=== PATIENT | female | born 1955 | race African-American/Black ===

== ENCOUNTER → 2018-11-08 | Day surgery (SDC) | payer OTHER ==
[2018-11-06 15:19] LABS: BASOPHILS % 0.6 % (0.0-1.0); EOSINOPHILS # (AUTO) 0.3 (0.0-0.4); LYMPHOCYTES # (AUTO) 2.1 (1.0-3.2); LYMPHOCYTES % 30.7 % (18.0-39.1); MEAN CORPUSCULAR HEMOGLOBIN 27.6 pg (28-32); MEAN CORPUSCULAR HGB CONC 31.6 g/dL (31-35); MEAN CORPUSCULAR VOLUME 87.6 fL (81-99); MONOCYTES # (AUTO) 0.4 (0.2-0.8); MONOCYTES % 5.4 % (4.4-11.3); PLATELET COUNT 254 x10e3/uL (140-360); RED BLOOD COUNT 4.34 x10e6/uL (3.6-5.1); RED CELL DISTRIBUTION WIDTH 14.7 % (11.7-14.4)
[2018-11-06 15:31] LABS: ANION GAP 12.6 mmol/L (8-16); BLOOD UREA NITROGEN 9 mg/dL (7-26); BUN/CREATININE RATIO 10 (6-25); CALCIUM 9.8 mg/dL (8.4-10.2); CARBON DIOXIDE 26 mmol/L (22-29); CHLORIDE 107 mmol/L (98-107); CREATININE, SERUM 0.88 mg/dL (0.57-1.11); EST GLOMERULAR FILTRATION RATE > 60 ML/MIN (60-); GLUCOSE 110 mg/dL (74-118); POTASSIUM 3.6 mmol/L (3.5-5.1); SODIUM 142 mmol/L (136-145)
--- NOTE | 2018-11-06 16:11 | Diagnostic Imaging Report ---
EXAMINATION: CHEST 2 VIEWS INDICATION: Pre-admit. COMPARISON: None FINDINGS: TUBES and LINES: None. LUNGS: Lungs are well inflated. There is focal opacity within the left lower lung. No evidence of pulmonary edema. PLEURA: No pleural effusion or pneumothorax. HEART AND MEDIASTINUM: The cardiomediastinal silhouette is unremarkable. Status post CABG. BONES AND SOFT TISSUES: Status post median sternotomy. The second from superior most sternal wire is fractured. UPPER ABDOMEN: No free air under the diaphragm. IMPRESSION: Focal opacity within left lower lung, which may reflect atelectasis. However given focal appearance, follow-up chest radiograph is suggested in 6-8 weeks to assess for resolution and exclude underlying pulmonary abnormality. Second from superior most median sternotomy wire is fractured, of unclear chronicity. Signed by: Dr. Josie Maddox MD on 11/06/2018 4:07 PM
[~2018-11-08] MED LIST: ASPIRIN81 MG PO; CEFAZOLIN SOD 2 GM/D5W 50ML 50 ML IV ONE; DEXAMETHASONE SOD PHOS INJ 4 MG/ML VIAL ONE; EPINEPHRINE HCL 1:1000 1ML 1 MG/ML AMP ONE; FENTANYL CITRATE/PF 100MCG/2 ML INJ ONE; GLYCOPYRROLATE INJ 1MG/ 5 ML SYR ONE; LATANOPROST2.5 ML OP; LIDOCAINE HCL 2% LOCAL 20 ML VIAL ONE; LIDOCAINE HCL 2% LOCAL INJ 5 ML SDV VIAL INJ ONE; LIPITOR20 MG; LIPITOR40 MG PO; LOSARTAN-HCTZ1 EAC2 PO; METOCLOPRAMIDE HCL 10 MG/2ML VIAL ONE; MIDAZOLAM HCL 2 MG/2 ML VIAL ONE; NEOSTIGMINE 5 MG/5ML SYR ONE; ONDANSETRON HCL INJ 2MG/ML 2ML 2 MG/ML VIAL ONE; PHENYLEPHRINE HCL 1% 10 MG/ML VIAL ONE; PLAVIX75 MG PO; PROPOFOL IV EMULSION 10 MG/ML 20 ML VIAL ONE; ROCURONIUM BROMIDE 10 MG/ML 5ML VIAL ONE; ROPIVACAINE 0.5% 5 MG/ML 30 ML SDV ONE; SEVOFLURANE INHAL SOLN 250 ML PEN BTL ONE
--- OUTSIDE RECORDS SUMMARY | 2018-11-08 06:30 | XMS REPORT | Continuity of Care Document ---
Author Author [facility] Interface Address Unknown Phone Unavailable Problems Problem Status Onset Date Classification Date Reported Comments Source Hypercholesterolemia Active Problem 04/23/2014 Mohkhalif Miller Edema of both legs Active Problem 04/23/2014 Mohkhalif Miller Carotid Bruit Active Problem 04/23/2014 Mohkhalif Miller Equivalent angina Active Problem 04/23/2014 Mohkhalif Miller LV dysfunction Active Problem 04/23/2014 Mohkhalif Miller Abnormal electrocardiogram Active Problem 04/23/2014 Mohkhalif Miller Coronary atherosclerosis of bypass graft Active Problem 04/23/2014 Rick Miller Old myocardial infarction Active Problem 04/23/2014 Rick Miller Medications Medication Details Route Status Patient Instructions Ordering Provider Order Date Source Ranexa 1 tablet Orally Active 500 MG Orally Twice a day Paul 11/15/2013 Rick Miller Losartan Potassium 1 tablet Orally Active 50 MG Orally Once a day Paul Miller Clopidogrel Bisulfate 1 tablet Orally Active 75 mg Orally once a day Paul Miller Atorvastatin Calcium 1 tablet Orally Active 40 MG Orally Once a day Paul Miller Centrum Silver Ultra Womens Unknown Orally Active Orally Once a day Paul Miller Ibuprofen 2 tablet Orally Active 200 MG Orally Once a day Paul Miller Clopidogrel Bisulfate TAKE 1 TABLET BY MOUTH ONCE A DAY. NA Active 75 mg Paul Miller Aspirin 1 tablet Orally Active 81 MG Orally Once a day Paul Miller Xanax 1 tablet Orally Active 0.5 MG Orally once a day Paul Miller Nitrostat 1 tablet under the tongue and allow to dissolve as needed Sublingual Active 0.4 MG Sublingual PRN Paul Miller Atorvastatin Calcium TAKE 1 TABLET BY MOUTH ONCE A DAY NA Active 40 mg Paul Miller Lumigan 1 drop into affected eye in the evening Ophthalmic Active 0.01 % Ophthalmic Once a day Paul Miller Allergies, Adverse Reactions, Alerts Substance Category Reaction Severity Reaction type Status Date Reported Comments Source Codeine Adverse Reaction itchyness Adverse Reaction Active 02/27/2014 Rick Miller Morphine Adverse Reaction confusion Adverse Reaction Active 02/27/2014 Rick Miller Ranexa Adverse Reaction Refuses Adverse Reaction Active 02/27/2014 Rick Miller Lisinopril Adverse Reaction Cough Adverse Reaction Active 02/27/2014 Rick Miller Immunizations Immunization Date Given Site Status Last Updated Comments Source Results Order Name Results Value Reference Range Date Interpretation Comments Source Vital Signs Vital Sign Value Date Comments Source Weight 208 02/27/2014 Rick Miller Height 66 02/27/2014 Rick Miller Temperature Oral (F) 97.1 F 02/27/2014 Rick Miller Heart Rate 58 02/27/2014 Rick Miller Diastolic (mm Hg) 80 02/27/2014 Rick Miller Systolic (mm Hg) 140 02/27/2014 Rick Miller Encounters Location Location Details Encounter Type Encounter Number Reason For Visit Attending Provider ADM Date DC Date Status Source Rick Miller MD [place] 6 month f/u [id number] 02/27/2014 02/27/2014 Rick Miller MD PA 6 month f/u [id number] 02/27/2014 02/27/2014 Rick Miller MD PA Unknown [id number] 03/20/2014 03/20/2014 Rick Miller Procedures Procedure Code Date Perfomer Comments Source
--- OUTSIDE RECORDS SUMMARY | 2018-11-08 06:31 | XMS REPORT ---
Author Author Rick Miller Organization [employer] Address Unknown Phone Unavailable Care Team Providers Care Acls Specialist Name Role Phone Rick Miller CP Unavailable Allergies, Adverse Reactions, Alerts Substance Reaction Event Type Codeine itchyness Drug Allergy Morphine confusion Drug Allergy Ranexa Refuses Drug Allergy Lisinopril Cough Drug Allergy Encounters Encounter Location Date 6 month f/u Rick Miller MD [place] February 27, 2014 Problems Problem Type Condition ICD-9 Code Onset Dates Condition Status Assessment Coronary atherosclerosis of bypass graft 414.05 Active Problem Hypercholesterolemia 272.0 Active Assessment Equivalent angina 413.9 Active Problem Edema of both legs 782.3 Active Problem Carotid Bruit 785.9 Active Problem Equivalent angina 413.9 Active Problem LV dysfunction 429.9 Active Problem Abnormal electrocardiogram 794.31 Active Problem Coronary atherosclerosis of bypass graft 414.05 Active Problem Old myocardial infarction 412 Active Assessment Hypercholesterolemia 272.0 Active Assessment Abnormal electrocardiogram 794.31 Active Assessment Carotid Bruit 785.9 Active Assessment LV dysfunction 429.9 Active Assessment Edema of both legs 782.3 Active Assessment Old myocardial infarction 412 Active Medications Medication Code System Code Instructions Start Date End Date Status Dosage Centrum Silver Ultra Womens [facility] [address]-10 Orally Once a day Active Unknown Ibuprofen [facility] [address]-91 200 MG Orally Once a day Active 2 tablet Clopidogrel Bisulfate [facility] 85441814221 75 mg Active TAKE 1 TABLET BY MOUTH ONCE A DAY. Aspirin [facility] [address]-19 81 MG Orally Once a day Active 1 tablet Ranexa [facility] [address]-61 500 MG Orally Twice a day November 15, 2013 Active 1 tablet Xanax [facility] [address]-39 0.5 MG Orally once a day Active 1 tablet Nitrostat [facility] [address]-25 0.4 MG Sublingual PRN Active 1 tablet under the tongue and allow to dissolve as needed Losartan Potassium [facility] [address]-60 50 mg Orally Once a day Active 1 tablet Atorvastatin Calcium [facility] 35927148278 40 mg Active TAKE 1 TABLET BY MOUTH ONCE A DAY Lizette [facility] [address]-36 0.01 % Ophthalmic Once a day Active 1 drop into affected eye in the evening Social History Social History Element Qualifiers Date Reported Smoking . Status Former Smoker quit in 09/2013February 27, 2014 Alcohol Use No. February 27, 2014 Alcohol Screening: No. February 27, 2014 Marital Status: . February 27, 2014 Do you drink alcohol? No. February 27, 2014 Occupation: . [employer] February 27, 2014 Family history Qualifier Description Comment Date Reported Mother Stroke, HTN, CAD February 27, 2014 Father Metastatic prostate cancer, HTN February 27, 2014 Vital Signs Date/Time: February 27, 2014 Weight 208 lbs Height 66 in Temperature 97.1 F Cardiac Monitoring Heart Rate 58 /min Blood Pressure Diastolic 80 mm Hg Blood Pressure Systolic 140 mm Hg Results Electrocardiogram (ECG) Summary Purpose [employer] Submission
--- OUTSIDE RECORDS SUMMARY | 2018-11-08 06:31 | XMS REPORT ---
[facility] Address Unknown Phone Unavailable Care Team Providers Care Blue Leather Setter Name Role Phone KENNA ENCARNACION Unavailable Unavailable Problems This patient has no known problems. Allergies, Adverse Reactions, Alerts This patient has no known allergies or adverse reactions. Medications This patient has no known medications. Results Test Description Test Time Test Comments Text Results Atomic Results Result Comments CHEST 2 VIEWS 2018-11-06 16:02:00 [place] [address] Patient Name: ANABELL GRIFFITHS MR #: [id number] : 1955 Age/Sex: 63/F Req #: [id number] Adm Physician: Ordered by: KENNA ENCARNACION MD Report #: [id number] Location: OR Room/Bed: Procedure: [id number] DX/CHEST 2 VIEWS Exam Date: 11/06/18 Exam Time: 1517 REPORT STATUS: Signed EXAMINATION: CHEST 2 VIEWS INDICATION: Pre-admit. COMPARISON: None FINDINGS: TUBES and LINES: None. LUNGS: Lungs are well inflated. There is focal opacity within the left lower lung. No evidence of pulmonary edema. PLEURA: No pleural effusion or pneumothorax. HEART AND MEDIASTINUM: The cardiomediastinal silhouette is unremarkable. Status post CABG. BONES AND SOFT TISSUES: Status post median sternotomy. Th e second from superior most sternal wire is fractured. UPPER ABDOMEN: No free air under the diaphragm. IMPRESSION: Focal opacity within left lower lung, which may reflect atelectasis. However given focal appearance, follow-up chest radiograph is suggested in 6-8 weeks to assess for resolution and exclude underlying pulmonary abnormality. Second from superior most median sternotomy wire is fractured, of unclear chronicity. Signed by: Dr. Phuong Prather MD on 11/06/2018 4:07 PM Dictated By: PHUONG PRATHER MD [id number] Transcribed By: AYDEN on 11/06/18 1607 COPY TO: KENNA ENCARNACION MD
--- OUTSIDE RECORDS SUMMARY | 2018-11-08 06:31 | XMS REPORT ---
Author Author Rick Miller Organization [employer] Address Unknown Phone Unavailable Care Team Providers Care Specialized Developer Name Role Phone Rick Miller CP Unavailable Encounters Encounter Location Date 6 month f/u Rick Miller MD [place] February 27, 2014 Unknown Rick Miller MD [place] Mar 20, 2014 Problems Problem Type Condition ICD-9 Code Onset Dates Condition Status Problem Hypercholesterolemia 272.0 Active Problem Edema of both legs 782.3 Active Problem Carotid Bruit 785.9 Active Problem Equivalent angina 413.9 Active Problem LV dysfunction 429.9 Active Problem Abnormal electrocardiogram 794.31 Active Problem Coronary atherosclerosis of bypass graft 414.05 Active Problem Old myocardial infarction 412 Active Medications Medication Code System Code Instructions Start Date End Date Status Dosage Losartan Pot[facility] [address]-62 50 MG Orally Once a day Active 1 tablet Clopidogrel Bisulfate [facility] [address]-54 75 mg Orally once a day Active 1 tablet Atorvastatin Calcium [facility] [address]-48 40 MG Orally Once a day Active 1 tablet Social History Social History Element Qualifiers Date Reported Smoking . Status Former Smoker quit in 09/2013February 27, 2014 Alcohol Use No. February 27, 2014 Alcohol Screening: No. February 27, 2014 Marital Status: . February 27, 2014 Do you drink alcohol? No. February 27, 2014 Occupation: . [employer] February 27, 2014 Summary Purpose [employer] Submission
[2018-11-08 13:00] VITALS: BP 112/87
--- NOTE | 2018-11-08 19:52 | Operative Report ---
DATE OF PROCEDURE: 11/08/2018 SURGEON: Ruben Phillip MD PREOPERATIVE DIAGNOSES: Right rotator cuff tear, right acromioclavicular joint arthrosis. POSTOPERATIVE DIAGNOSES: Right rotator cuff tear, right acromioclavicular joint arthrosis, right shoulder synovitis, right shoulder biceps tendon tear. OPERATION/PROCEDURES PERFORMED: The patient underwent a right shoulder examination under anesthesia, right shoulder arthroscopy, right shoulder arthroscopic debridement of synovitis, right shoulder arthroscopic biceps tenodesis, right shoulder arthroscopic rotator cuff repair, right shoulder arthroscopic subacromial decompression, acromioplasty, a right shoulder arthroscopic distal clavicle resection. SUPERVISOR SAMPLE: Ellen Armenta. ANESTHESIA: Regional block plus general endotracheal intubation anesthesia. IV FLUIDS: As per the anesthesia record. BLOOD LOSS: Less than 5 mL. BRIEF DISCUSSION OF THE PATIENT'S OPERATIVE PROCEDURE: Ms. Sol was taken to the operating room and placed in the supine position on the operating table. After induction of general anesthesia as well as endotracheal intubation, the patient's right upper extremity was examined under anesthesia. She was found to have a normal- appearing shoulder. She had full passive range of motion of the shoulder joint. No evidence of instability. The patient's upper extremity was prepped and draped in standard surgical fashion. The case was begun by creating a posterior lateral and anterior portals without difficulty. The scope was placed within the shoulder joint atraumatically. Examination of the glenohumeral articulation demonstrated no significant evidence of chondromalacia. There was a partial biceps tendon tear. There were no loose bodies in the shoulder joint. There was a full-thickness, but minimally retracted rotator cuff tear. There was also diffuse synovitis throughout the shoulder joint. A shaver was placed on the shoulder and synovitis was debrided. The biceps tendon was debrided and further probed and she was found to have a near complete tear of the intra- articular portion of the biceps tendon. The rotator interval was intact. Therefore, decision was made to perform an all-inside biceps tenodesis. The rotator interval was debrided. Sutures were shuttled through the rotator interval capturing the biceps tendon. The biceps tendon was then released from its insertions into the superior aspect of the glenoid. The synovitis was debrided within the shoulder joint. The rotator cuff injury was also debrided and the insertion site for the rotator cuff tear was debrided to a bleeding bony bed. The shoulder was deflated with sterile normal saline. The scope was placed in subacromial space and significant bursal inflammation was encountered. A lateral portal was created with an outside-in technique The shaver was placed in subacromial space and a bursectomy was performed. The patient was found to have an anterior os acromiale. A shaver was used to further debride the insertion site for the rotator cuff. A single triple loaded suture anchor was inserted into the greater tuberosity and the suture arms from that anchor were then woven through the rotator cuff tissue. The rotator cuff tissue, however, was found to be frayed and poor quality tissue. Sutures, however, were able to capture what appeared to be viable tendon. The rotator cuff was then advanced into its normal insertion site and tied firmly reestablishing the integrity of the rotator cuff. The biceps tenodesis sutures were also captured in the subacromial space and tied over the rotator interval. The coracoacromial ligament was resected. A downward sloping portion of the acromion was resected as well as the osteophytes from the os acromiale. The shoulder was placed in motion, found to have no impingement following the acromioplasty. Attention was then turned to the distal clavicle and acromioclavicular joint. The anterior portal was transferred to subacromial space and shaver was used to isolate the distal aspect of the clavicle. Shaver was then used to resect a 1 cm section of the distal clavicle thus providing decompression of the AC joint. The shoulder was inflated with sterile normal saline. The portal sites were closed and sterile dressings were applied. The patient was provided a shoulder immobilizer, awakened, and taken to the Postanesthesia Care Unit in stable condition. Geovany acted as the chemist assistant for this case and was necessary for the positioning of the patient, positioning o fthe arm during the case, passage of suture and the closure of wounds that allowed this case to be successful. MD ASTON Lopez/WILMAN /[id number] CANDY
== END | disposition home or self-care (01) ==
LOC: OR 06:27
PROVIDERS: ATTEND Specialist
DX: M75.121 Complete rotator cuff tear or rupture of right shoulder, not specified as traumatic (principal); S46.211A Strain of muscle, fascia and tendon of other parts of biceps, right arm, initial encounter; M19.011 Primary osteoarthritis, right shoulder; M65.811 Other synovitis and tenosynovitis, right shoulder; M25.711 Osteophyte, right shoulder; I25.810 Atherosclerosis of coronary artery bypass graft(s) without angina pectoris; I10 Essential (primary) hypertension; X58.XXXA Exposure to other specified factors, initial encounter; Z88.6 Allergy status to analgesic agent; Z01.812 Encounter for preprocedural laboratory examination; Z01.818 Encounter for other preprocedural examination; Z79.02 Long term (current) use of antithrombotics/antiplatelets; Z79.82 Long term (current) use of aspirin; Z68.33 Body mass index [BMI] 33.0-33.9, adult; Z95.1 Presence of aortocoronary bypass graft; Z95.5 Presence of coronary angioplasty implant and graft
CPT/HCPCS: 29824; 29826; 29827; 29828; 36415; 71046; 80048; 85025; J0171; J0690; J1100; J2001 ×2; J2250; J2370; J2405; J2704; J2765; J2795; J3490

== ENCOUNTER 2019-01-26 07:00 | Outpatient (RCR) | payer OTHER ==
[~2019-01-26 07:00] MED LIST changes: -CEFAZOLIN SOD 2 GM/D5W 50ML 50 ML IV ONE; -DEXAMETHASONE SOD PHOS INJ 4 MG/ML VIAL ONE; -EPINEPHRINE HCL 1:1000 1ML 1 MG/ML AMP ONE; -FENTANYL CITRATE/PF 100MCG/2 ML INJ ONE; -GLYCOPYRROLATE INJ 1MG/ 5 ML SYR ONE; -LIDOCAINE HCL 2% LOCAL 20 ML VIAL ONE; -LIDOCAINE HCL 2% LOCAL INJ 5 ML SDV VIAL INJ ONE; -METOCLOPRAMIDE HCL 10 MG/2ML VIAL ONE; -MIDAZOLAM HCL 2 MG/2 ML VIAL ONE; -NEOSTIGMINE 5 MG/5ML SYR ONE; -ONDANSETRON HCL INJ 2MG/ML 2ML 2 MG/ML VIAL ONE; -PHENYLEPHRINE HCL 1% 10 MG/ML VIAL ONE; -PROPOFOL IV EMULSION 10 MG/ML 20 ML VIAL ONE; -ROCURONIUM BROMIDE 10 MG/ML 5ML VIAL ONE; -ROPIVACAINE 0.5% 5 MG/ML 30 ML SDV ONE; -SEVOFLURANE INHAL SOLN 250 ML PEN BTL ONE
== END 2019-01-28 ==
LOC: PT 07:00
PROVIDERS: ATTEND Specialist
DX: M75.101 Unspecified rotator cuff tear or rupture of right shoulder, not specified as traumatic (principal); M25.611 Stiffness of right shoulder, not elsewhere classified; M62.81 Muscle weakness (generalized)

== ENCOUNTER 2019-02-13 07:00 | Outpatient (RCR) | payer OTHER | END 2019-02-28 | LOC: PT 07:00 | PROVIDERS: ATTEND Specialist | DX: M25.511 Pain in right shoulder (principal); M62.81 Muscle weakness (generalized) ==

== ENCOUNTER → 2021-11-20 | Day surgery (SDC) | payer MEDICARE, OTHER ==
[2021-11-18 10:43] LABS: BASOPHILS % 0.7 % (0.0-1.0); EOSINOPHILS # (AUTO) 0.2 (0.0-0.4); EOSINOPHILS % 3.6 % (0.0-6.0); HEMATOCRIT 41.8 % (34.2-44.1); HEMOGLOBIN 12.8 g/dL (12.0-16.0); LYMPHOCYTES # (AUTO) 1.9 (1.0-3.2); MEAN CORPUSCULAR HEMOGLOBIN 28.6 pg (28-32); MEAN CORPUSCULAR HGB CONC 30.6 g/dL (31-35); MEAN CORPUSCULAR VOLUME 93.5 fL (81-99); MONOCYTES # (AUTO) 0.3 (0.2-0.8); MONOCYTES % 5.3 % (4.4-11.3); NEUTROPHILS % 55.2 % (38.7-80.0); PLATELET COUNT 205 x10e3/uL (140-360); RED BLOOD COUNT 4.47 x10e6/uL (3.6-5.1); RED CELL DISTRIBUTION WIDTH 14.8 % (11.7-14.4)
[2021-11-18 11:06] LABS: ANION GAP 14.4 mmol/L (8-16); CREATININE, SERUM 0.88 mg/dL (0.57-1.11); POTASSIUM 4.4 mmol/L (3.5-5.1)
[~2021-11-20] MED LIST changes: +ALEVE PM CAPLE1 EACH PO; +CENTRUM ADULTS1 EACH PO; +COLACE100 MG PO; +FENTANYL CITRATE/PF 100MCG/2 ML INJ ONE; +GLUCAGON FOR INJ 1 MG VIAL ONE; +HYOSCYAMINE SULFATE 0.5 MG/ML INJ ONE; +LUMIGAN2.5 M1 OU; +METFORMIN HCL500 MG PO; +MIDAZOLAM HCL 2 MG/2 ML VIAL ONE; +ONDANSETRON HCL INJ 2MG/ML 2ML 2 MG/ML VIAL ONE; +PROPOFOL IV EMULSION 10 MG/ML 20 ML VIAL ONE; +TYLENOL325 MG PO
[2021-11-20 17:51] LABS: WBC,FECAL (FECAL LACTOFERRIN) NEGATIVE (NEGATIVE)
[2021-11-20 18:20] VITALS: BP 103/74
[2021-11-21 13:37] LABS: C DIFFICILE TOXIN A&B AMP PROB NEGATIVE (NEGATIVE)
== END | disposition home or self-care (01) ==
LOC: OR 12:38
PROVIDERS: ATTEND Internal Medicine Gastroenterology
DX: K52.9 Noninfective gastroenteritis and colitis, unspecified (principal); D12.3 Benign neoplasm of transverse colon; K55.20 Angiodysplasia of colon without hemorrhage; K29.50 Unspecified chronic gastritis without bleeding; B96.81 Helicobacter pylori [H. pylori] as the cause of diseases classified elsewhere; K31.A19 Gastric intestinal metaplasia without dysplasia, unspecified site; K26.9 Duodenal ulcer, unspecified as acute or chronic, without hemorrhage or perforation; K59.09 Other constipation; K20.90 Esophagitis, unspecified without bleeding; K64.8 Other hemorrhoids; D72.820 Lymphocytosis (symptomatic); Z71.3 Dietary counseling and surveillance; E73.9 Lactose intolerance, unspecified; E11.9 Type 2 diabetes mellitus without complications; J44.9 Chronic obstructive pulmonary disease, unspecified; I44.7 Left bundle-branch block, unspecified; I10 Essential (primary) hypertension; I25.810 Atherosclerosis of coronary artery bypass graft(s) without angina pectoris; I25.2 Old myocardial infarction; H40.9 Unspecified glaucoma; E78.00 Pure hypercholesterolemia, unspecified; Z88.6 Allergy status to analgesic agent; Z01.810 Encounter for preprocedural cardiovascular examination; Z01.812 Encounter for preprocedural laboratory examination; Z20.822 Contact with and (suspected) exposure to COVID-19; Z79.84 Long term (current) use of oral hypoglycemic drugs; Z79.02 Long term (current) use of antithrombotics/antiplatelets; Z79.82 Long term (current) use of aspirin; Z79.899 Other long term (current) drug therapy; Z68.33 Body mass index [BMI] 33.0-33.9, adult; Z95.1 Presence of aortocoronary bypass graft; Z95.5 Presence of coronary angioplasty implant and graft; Z87.891 Personal history of nicotine dependence
CPT/HCPCS: 36415 ×2; 43239; 45380; 45385; 80048; 82948; 83630; 83993; 85025; 87045; 87177; 87328; 87493; 93005; C9113; J1610; J1980; J2250; J2405; J2704; J3010; U0002; 45378

== ENCOUNTER → 2022-09-15 | Day surgery (SDC) | payer MEDICARE ==
[2022-09-10 09:17] LABS: BASOPHILS % 0.6 % (0.0-1.0); EOSINOPHILS # (AUTO) 0.3 (0.0-0.4); EOSINOPHILS % 4.5 % (0.0-6.0); HEMATOCRIT 42.5 % (34.2-44.1); HEMOGLOBIN 12.7 g/dL (12.0-16.0); LYMPHOCYTES # (AUTO) 2.2 (1.0-3.2); LYMPHOCYTES % 33.3 % (18.0-39.1); MEAN CORPUSCULAR HEMOGLOBIN 28.2 pg (28-32); MEAN CORPUSCULAR HGB CONC 29.9 g/dL (31-35); MEAN CORPUSCULAR VOLUME 94.4 fL (81-99); MONOCYTES # (AUTO) 0.4 (0.2-0.8); MONOCYTES % 5.2 % (4.4-11.3); NEUTROPHILS # (AUTO) 3.8 (2.1-6.9); NEUTROPHILS % 56.1 % (38.7-80.0); PLATELET COUNT 236 x10e3/uL (140-360); RED CELL DISTRIBUTION WIDTH 14.2 % (11.7-14.4)
[2022-09-10 09:44] LABS: ANION GAP 12.9 mmol/L (8-16); CALCIUM 9.8 mg/dL (8.4-10.2); CREATININE, SERUM 0.87 mg/dL (0.57-1.11); POTASSIUM 3.9 mmol/L (3.5-5.1)
[~2022-09-15] MED LIST changes: +BIOTIN 800 MCG1 EACH PO; +BUPIVACAINE HCL 0.5% INJ 30 ML VIAL INJ ONE; +CEFAZOLIN SODIUM 2 GM ONE; +CO Q-10200 MG PO; +DEXAMETHASONE SOD PHOS INJ 4 MG/ML SDV ONE; +FAMOTIDINE 20 MG/2 ML VIAL IV ONE; -FENTANYL CITRATE/PF 100MCG/2 ML INJ ONE; -GLUCAGON FOR INJ 1 MG VIAL ONE; +GLYCOPYRROLATE INJ 0.2 MG/ML VIAL ONE; -HYOSCYAMINE SULFATE 0.5 MG/ML INJ ONE; +LIDOCAINE HCL 2% LOCAL INJ 5 ML SDV VIAL INJ ONE; +METOCLOPRAMIDE HCL 10 MG/2ML VIAL ONE; -MIDAZOLAM HCL 2 MG/2 ML VIAL ONE; +PEPCID20 MG PO; +PHENYLEPHRINE HCL 1% 10 MG/ML VIAL ONE; +POVIDONE IODINE 0.05% 0.05 % ML PO ONE; +ROCURONIUM BROMIDE 10 MG/ML 5ML VIAL IV ONE; +SCOPOLAMINE 1 MG PATCH ONE; +SEVOFLURANE INHAL SOLN 250 ML PEN BTL ONE; +SUCCINYLCHOLINE CHLORIDE 20 MG/ML 10ML VIAL ONE; +TYLENOL PM EXS1 EACH PO
[2022-09-15 10:00] VITALS: BP 101/61
== END | disposition home or self-care (01) ==
LOC: OR 07:25
PROVIDERS: ATTEND Specialist
DX: G56.02 Carpal tunnel syndrome, left upper limb (principal); M19.042 Primary osteoarthritis, left hand; E11.9 Type 2 diabetes mellitus without complications; I25.810 Atherosclerosis of coronary artery bypass graft(s) without angina pectoris; I10 Essential (primary) hypertension; I25.2 Old myocardial infarction; E78.5 Hyperlipidemia, unspecified; K21.9 Gastro-esophageal reflux disease without esophagitis; Z88.6 Allergy status to analgesic agent; Z01.810 Encounter for preprocedural cardiovascular examination; Z01.812 Encounter for preprocedural laboratory examination; Z01.818 Encounter for other preprocedural examination; Z79.84 Long term (current) use of oral hypoglycemic drugs; Z79.02 Long term (current) use of antithrombotics/antiplatelets; Z79.82 Long term (current) use of aspirin; Z79.899 Other long term (current) drug therapy; Z95.1 Presence of aortocoronary bypass graft; Z87.891 Personal history of nicotine dependence
CPT/HCPCS: 36415 ×2; 64721; 71046; 80048; 82948; 85025; J0330; J1100; J2001; J2370; J2405; J2704; J2765